=== PATIENT | male | born 1985 | race American Indian/Alaskan Native ===

== ENCOUNTER → 2022-08-18 | Outpatient (CLI) | payer OTHER ==
[~2022-08-18] MED LIST: BACITO TOP; SULTRIDS PO
== END ==
LOC: LAB 17:30 → LAB SHORT 17:30
DX: L08.9 Local infection of the skin and subcutaneous tissue, unspecified (principal)
CPT/HCPCS: 87070; 87075; 87077; 87147; 87186; 87205

== ENCOUNTER 2022-08-21 12:04 | Emergency (ER) | payer OTHER ==
[~2022-08-21] VITALS: Ht 165.1 cm; Wt 69.8 kg
[2022-08-21] MEDS ORDERED: SULTRIDS PO (14:23)
[2022-08-21] MEDS ORDERED: BACITO TOP (14:23)
== END 2022-08-21 14:26 | disposition home or self-care (01) ==
LOC: ER 12:04
DX: L03.012 Cellulitis of left finger (principal); S60.451A Superficial foreign body of left index finger, initial encounter; W45.8XXA Other foreign body or object entering through skin, initial encounter
CPT/HCPCS: 73130; 96372; 99283-25; J1885